=== PATIENT | female | born 1990 | race African-American/Black ===

== ENCOUNTER 2018-01-26 12:02 | Emergency (ER) | payer SELFPAY ==
[2018-01-26] MEDS ORDERED: AMOX/K CLAV 875 MG TAB ONE (13:16)
[2018-01-26] MEDS ORDERED: LIDOCAINE VISCOUS 2% SOLN 15 ML UDC ONE (13:16)
--- NOTE | 2018-01-26 13:26 | ER ---
Nurse's Notes [facility] Name: Iram Caceres Age: 27 yrs Sex: Female : 1990 Arrival Date: 01/26/2018 Time: 12:05 Bed 10 Private MD: Diagnosis: Streptococcal tonsillitis Presentation: 01/26 12:15 Presenting complaint: Patient states: i was in the dental clinic yesterday for a hj procedure but have did not pull my teeth; Rx with antibiotics, cant swallow it; now complaints of fever, 102, sore throat and swollen mouth and gums;. Transition of care: patient was not received from another setting of care. Onset of symptoms was January 26, 2018. Care prior to arrival: None. 12:15 Method Of Arrival: Ambulatory 12:15 Acuity: DINESH 4 Triage Assessment: 12:17 General: Appears in no apparent distress. uncomfortable, Behavior is cooperative, hj appropriate for age, agitated. Pain: Complains of pain in mouth, gum and sore throat. EENT: Reports pain in sore throat, mouth, gums. 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 - Social history:: Smoking status: . Screenin:00 Abuse screen: Denies threats or abuse. Denies injuries from another. Nutritional iw screening: No deficits noted. Tuberculosis screening: No symptoms or risk factors identified. Fall Risk None identified. Assessment: 12:18 Respiratory: Airway is patent Respiratory effort is even, unlabored, Respiratory hj pattern is regular, symmetrical, Breath sounds are clear. EENT: Throat. Vital Signs: 12:18 BP 116 / 69; Pulse 96; Resp 18; Temp 99.1(TE); Pulse Ox 96% on R/A; Weight 65.77 kg; hj Height 5 ft. 8 in. (172.72 cm); Pain 10/10; 12:18 Body Mass Index 22.05 (65.77 kg, 172.72 cm) ED Course: 12:05 Patient arrived in ED. mr 12:09 Aissatou Araujo FNP-C is [facility]. kb 12:09 Teo Moffett MD is Attending Physician. kb 12:17 Triage completed. hj 12:18 Arm band placed on left wrist. hj 12:41 Rose Younger, RN is Primary Nurse. iw 13:00 Patient has correct armband on for positive identification. iw 13:45 No provider procedures requiring assistance completed. Patient did not have IV access iw during this emergency room visit. Administered Medications: 13:05 Drug: Viscous Lidocaine Liquid (4 %) 5 ml Route: Mucous Membrane; iw 13:05 Drug: Augmentin 875 mg Route: PO; iw Outcome: 13:25 Discharge ordered by MD. kb 13:45 Discharged to home ambulatory, with family. iw 13:45 Condition: good 13:45 Discharge instructions given to patient, family, Instructed on discharge instructions, follow up and referral plans. Demonstrated understanding of instructions, follow-up care. 13:49 Patient left the ED. iw Signatures: Aissatou Araujo FNP-C FNP-Lissa Forte mr Rose Younger, RN RN iw Henry Hansen RN RN hj
--- NOTE | 2018-01-26 13:26 | EDPHYS ---
Physician Documentation [facility] Name: Iram Caceres Age: 27 yrs Sex: Female : 1990 Arrival Date: 01/26/2018 Time: 12:05 Bed 10 Private MD: ED Physician Teo Moffett HPI: 01/26 12:53 This 27 yrs old Black Female presents to ER via Ambulatory with complaints of Sore kb Throat, Fever. 12:53 The patient presents with sore throat. The patient describes throat pain as constant. kb Onset: The symptoms/episode began/occurred this morning. Severity of symptoms: At their worst the symptoms were moderate, in the emergency department the symptoms are unchanged. Modifying factors: The symptoms are alleviated by nothing, the symptoms are aggravated by swallowing, Patient's oral intake status: unable to tolerate fluids, unable to tolerate foods. Associated signs and symptoms: Pertinent positives: fever, Sore throat. The patient has not experienced similar symptoms in the past. The patient has been recently seen by a physician: a dentist, yesterday. Pt was seen by dentist yesterday, had a procedure done and given abx. Today woke up with swelling to area that they did the procedure at and sore throat. "I haven't taken my antibiotics because it hurts to swallow.". 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 - Social history:: Smoking status: . ROS: 12:52 Cardiovascular: Negative for chest pain, palpitations, and edema, Respiratory: Negative kb for shortness of breath, cough, wheezing, and pleuritic chest pain, Abdomen/GI: Negative for abdominal pain, nausea, vomiting, diarrhea, and constipation, MS/Extremity: Negative for injury and deformity, Skin: Negative for injury, rash, and discoloration, Neuro: Negative for headache, weakness, numbness, tingling, and seizure. 12:52 Constitutional: Positive for fever, Negative for body aches, chills, fatigue, malaise, poor PO intake, weight loss. 12:52 ENT: Positive for dental pain, sore throat. Exam: 12:52 Constitutional: This is a well developed, well nourished patient who is awake, alert, kb and in no acute distress. Head/Face: Normocephalic, atraumatic. Chest/axilla: Normal chest wall appearance and motion. Nontender with no deformity. No lesions are appreciated. Cardiovascular: Regular rate and rhythm with a normal S1 and S2. No gallops, murmurs, or rubs. Normal PMI, no JVD. No pulse deficits. Respiratory: Lungs have equal breath sounds bilaterally, clear to auscultation and percussion. No rales, rhonchi or wheezes noted. No increased work of breathing, no retractions or nasal flaring. Abdomen/GI: Soft, non-tender, with normal bowel sounds. No distension or tympany. No guarding or rebound. No evidence of tenderness throughout. Skin: Warm, dry with normal turgor. Normal color with no rashes, no lesions, and no evidence of cellulitis. MS/ Extremity: Pulses equal, no cyanosis. Neurovascular intact. Full, normal range of motion. Neuro: Awake and alert, GCS 15, oriented to person, place, time, and situation. Cranial nerves II-XII grossly intact. Motor strength 5/5 in all extremities. Sensory grossly intact. Cerebellar exam normal. Normal gait. 12:52 ENT: Posterior pharynx: erythema, that is moderate, Dental exam: pain, that is moderate, specifically in the lower right second molar (#31) and lower right third molar (#32). Vital Signs: 12:18 BP 116 / 69; Pulse 96; Resp 18; Temp 99.1(TE); Pulse Ox 96% on R/A; Weight 65.77 kg; hj Height 5 ft. 8 in. (172.72 cm); Pain 10/10; 12:18 Body Mass Index 22.05 (65.77 kg, 172.72 cm) hj MDM: 12:38 Patient medically screened. kb 12:52 Data reviewed: vital signs, nurses notes. Data interpreted: Pulse oximetry: on room air kb is 96 %. Interpretation: normal. 13:25 Counseling: I had a detailed discussion with the patient and/or guardian regarding: the kb historical points, exam findings, and any diagnostic results supporting the discharge/admit diagnosis, lab results, the need for outpatient follow up, a family practitioner, to return to the emergency department if symptoms worsen or persist or if there are any questions or concerns that arise at home. 01/26 12:52 Order name: Strep kb 01/26 13:24 Order name: Group A Streptococcus Rapid Sc; Complete Time: 13:25 EDMS Administered Medications: 13:05 Drug: Viscous Lidocaine Liquid (4 %) 5 ml Route: Mucous Membrane; iw 13:05 Drug: Augmentin 875 mg Route: PO; iw Disposition: 14:02 Co-signature as Attending Physician, Teo Moffett MD I agree with the assessment and kdr plan of care. Disposition: 01/26/18 13:25 Discharged to Home. Impression: Streptococcal tonsillitis. - Condition is Stable. - Discharge Instructions: Strep Throat, [id number]. - Work release form, Medication Reconciliation Form, Thank You Letter, Antibiotic Education, Prescription Opioid Use form. - Follow up: Emergency Department; When: As needed; Reason: Worsening of condition. Follow up: Private Physician; When: 2 - 3 days; Reason: Recheck today's complaints, Continuance of care, Re-evaluation by your physician. - Notes: Continue amoxicillin previously prescribed by dentist Signatures: Dispatcher [employer] Aissatou Borrero FNP-C FNP-Teo Pulido MD MD [facility] Rose Younger RN RN iw Joaquin, Henry, RN RN
== END 2018-01-26 13:49 | disposition home or self-care (01) ==
LOC: ER 12:02
DX: J02.0 Streptococcal pharyngitis (principal); Z88.5 Allergy status to narcotic agent
CPT/HCPCS: 87081; 99283